=== PATIENT | female | born 1955 | race Caucasian/White ===

== ENCOUNTER 2017-06-04 08:27 | Inpatient (IN) | payer OTHER ==
--- NOTE | 2017-06-04 08:45 | ED ---
General Adult HPI - General Chief complaint: Shortness of Breath Stated complaint: fatique,weakness Time Seen by Provider: 06/04/17 08:37 Source: patient, RN notes reviewed Mode of arrival: wheelchair Limitations: no limitations - History of Present Illness Initial comments: Patient is a pleasant [age]-year-old female presenting to the emergency Department with shortness of breath. Symptoms have been present for the past couple of weeks. Symptoms are generally with exertion. Patient occasionally will notice symptoms at nighttime. No chest discomfort. Patient states she is only able to walk 10 or 20 feet before she becomes short of breath. Patient does admit to having some palpitations however has difficulty describing this. No leg pain or leg swelling. Minimal cough. No fever. Cough is nonproductive. - Related Data Home Medications Medication Instructions Recorded Confirmed Aspirin [Adult Low Dose Aspirin EC] 81 mg PO DAILY 06/04/17 06/04/17 Cholecalciferol [Vitamin D3] 3,000 unit PO DAILY 06/04/17 06/04/17 Hydrochlorothiazide 25 mg PO DAILY 06/04/17 06/04/17 Levothyroxine Sodium [Synthroid] 137 mcg PO DAILY 06/04/17 06/04/17 Lisinopril [Zestril] 40 mg PO DAILY 06/04/17 06/04/17 Allergies Allergy/AdvReac Type Severity Reaction Status Date / Time No Known Allergies Allergy Verified 06/04/17 08:48 Review of Systems ROS Statement: Those systems with pertinent positive or pertinent negative responses have been documented in the HPI. ROS Other: All systems not noted in ROS Statement are negative. Constitutional: Denies: fever, chills Eyes: Denies: eye pain ENT: Denies: ear pain Respiratory: Reports: dyspnea Cardiovascular: Reports: palpitations. Denies: chest pain Endocrine: Reports: fatigue Gastrointestinal: Denies: abdominal pain Genitourinary: Denies: dysuria Musculoskeletal: Denies: back pain Skin: Denies: rash Neurological: Denies: headache Past Medical History Past Medical History: Hypertension, Thyroid Disorder History of Any Multi-Drug Resistant Organisms: None Reported Past Surgical History: Cholecystectomy Additional Past Surgical History / Comment(s): partial thyroidectomy Past Psychological History: No Psychological Hx Reported Smoking Status: Never smoker Past Alcohol Use History: Rare Past Drug Use History: None Reported General Exam Limitations: no limitations General appearance: alert, in no apparent distress Head exam: Present: atraumatic Eye exam: Present: normal appearance, PERRL ENT exam: Present: normal oropharynx Neck exam: Present: normal inspection Respiratory exam: Present: normal lung sounds bilaterally Cardiovascular Exam: Present: tachycardia Expanded Peripheral pulses: 2+: Radial (R), Radial (L), Posterior Tibialis (R), Posterior Tibialis (L) GI/Abdominal exam: Present: soft. Absent: tenderness Extremities exam: Present: normal inspection. Absent: pedal edema, calf tenderness Back exam: Present: normal inspection Neurological exam: Present: alert Psychiatric exam: Present: normal affect, normal mood Skin exam: Present: normal color Course Vital Signs 06/04/17 06/04/17 08:28 09:30 Temperature 96.9 F L Pulse Rate 110 H 90 Respiratory 20 20 Rate Blood Pressure 129/79 115/75 O2 Sat by Pulse 95 99 Oximetry - Reevaluation(s) Reevaluation #1: 06/04/17 10:25 Case was discussed with radiologist with concern for massive pulmonary embolism. Case was then discussed with Dr. Nova who did review computed tomography scan. Discussion had whether or not to provide TPA. He does want to have stat echo done first to evaluate for cardiac strain. Patient and family were updated. Patient states she does have a sister who of pulmonary embolism. Patient states she also has a history of DVT previously however is no longer on blood thinners. 06/04/17 10:28 Dr. verdugo has been paged for admission for Dr. Reyes. EKG Findings - EKG Comments: EKG Findings:: Sinus tach 105. NM 172. QRS 80. QT 336. QTc 444. Normal axis. Q waves with inverted T waves inferior. Medical Decision Making - Lab Data Result diagrams: 06/04/17 09:00 06/04/17 09:00 Lab Results 06/04/17 06/04/17 06/04/17 Range/Units 09:00 09:00 09:00 WBC 5.9 (3.8-10.6) k/uL RBC 4.50 (3.80-5.40) m/uL Hgb 13.8 (11.4-16.0) gm/dL Hct 41.4 (34.0-46.0) % MCV 91.9 (80.0-100.0) fL MCH 30.6 (25.0-35.0) pg MCHC 33.3 (31.0-37.0) g/dL RDW 14.4 (11.5-15.5) % Plt Count 188 (150-450) k/uL Neutrophils % 67 % Lymphocytes % 22 % Monocytes % 4 % Eosinophils % 4 % Basophils % 1 % Neutrophils # 4.0 (1.3-7.7) k/uL Lymphocytes # 1.3 (1.0-4.8) k/uL Monocytes # 0.2 (0-1.0) k/uL Eosinophils # 0.2 (0-0.7) k/uL Basophils # 0.0 (0-0.2) k/uL PT (9.0-12.0) sec INR (<1.2) APTT (22.0-30.0) sec D-Dimer (<0.60) mg/L FEU Sodium 140 (137-145) mmol/L Potassium 3.6 (3.5-5.1) mmol/L Chloride 103 (98-107) mmol/L Carbon Dioxide 23 (22-30) mmol/L Anion Gap 14 mmol/L BUN 20 H (7-17) mg/dL Creatinine 1.07 H (0.52-1.04) mg/dL Est GFR (MDRD) Af Amer >60 (>60 ml/min/1.73 sqM) Est GFR (MDRD) Non-Af 52 (>60 ml/min/1.73 sqM) Glucose 149 H (74-99) mg/dL Calcium 9.3 (8.4-10.2) mg/dL Total Bilirubin 0.9 (0.2-1.3) mg/dL AST 34 (14-36) U/L ALT 54 H (9-52) U/L Alkaline Phosphatase 127 H (38-126) U/L Total Creatine Kinase 55 (30-135) U/L CK-MB (CK-2) 1.0 (0.0-2.4) ng/mL CK-MB (CK-2) Rel Index 1.8 Troponin I 0.139 H* (0.000-0.034) ng/mL NT-Pro-B Natriuret Pep pg/mL Total Protein 6.9 (6.3-8.2) g/dL Albumin 4.0 (3.5-5.0) g/dL 06/04/17 06/04/17 Range/Units 09:00 09:00 WBC (3.8-10.6) k/uL RBC (3.80-5.40) m/uL Hgb (11.4-16.0) gm/dL Hct (34.0-46.0) % MCV (80.0-100.0) fL MCH (25.0-35.0) pg MCHC (31.0-37.0) g/dL RDW (11.5-15.5) % Plt Count (150-450) k/uL Neutrophils % % Lymphocytes % % Monocytes % % Eosinophils % % Basophils % % Neutrophils # (1.3-7.7) k/uL Lymphocytes # (1.0-4.8) k/uL Monocytes # (0-1.0) k/uL Eosinophils # (0-0.7) k/uL Basophils # (0-0.2) k/uL PT 11.2 (9.0-12.0) sec INR 1.1 (<1.2) APTT 22.3 (22.0-30.0) sec D-Dimer 11.44 H (<0.60) mg/L FEU Sodium (137-145) mmol/L Potassium (3.5-5.1) mmol/L Chloride (98-107) mmol/L Carbon Dioxide (22-30) mmol/L Anion Gap mmol/L BUN (7-17) mg/dL Creatinine (0.52-1.04) mg/dL Est GFR (MDRD) Af Amer (>60 ml/min/1.73 sqM) Est GFR (MDRD) Non-Af (>60 ml/min/1.73 sqM) Glucose (74-99) mg/dL Calcium (8.4-10.2) mg/dL Total Bilirubin (0.2-1.3) mg/dL AST (14-36) U/L ALT (9-52) U/L Alkaline Phosphatase (38-126) U/L Total Creatine Kinase (30-135) U/L CK-MB (CK-2) (0.0-2.4) ng/mL CK-MB (CK-2) Rel Index Troponin I (0.000-0.034) ng/mL NT-Pro-B Natriuret Pep 5110 pg/mL Total Protein (6.3-8.2) g/dL Albumin (3.5-5.0) g/dL - Radiology Data Radiology results: image reviewed (Two-view chest x-ray shows no acute process. Computed tomography scan of the chest shows acute massive pulmonary embolism with central and peripheral involvement.) Critical Care Time Critical Care Time: Yes Total Critical Care Time: 40 Disposition Clinical Impression: Acute massive pulmonary embolism Disposition: ADMITTED IP TO THIS HOSP Condition: Critical Referrals: Rafal Reyes MD [Primary Care Provider] - 1-2 days Decision Time: 10:27
[2017-06-04 09:17] LABS: Basophils % (A) 1 %; CH 31.6; CHCM 34.5; Eosinophils # (A) 0.2 k/uL (0-0.7); Eosinophils % (A) 4 %; HCT 41.4 % (34.0-46.0); HDW 2.59; HGB 13.8 gm/dL (11.4-16.0); Luc # (Auto) 0.13; Luc % (Auto) 2; Lymphocytes # (A) 1.3 k/uL (1.0-4.8); Lymphocytes % (A) 22 %; MCH 30.6 pg (25.0-35.0); MCHC 33.3 g/dL (31.0-37.0); MCV 91.9 fL (80.0-100.0); Mean Platelet Volume 8.9; Monocytes # (A) 0.2 k/uL (0-1.0); Monocytes % (A) 4 %; Neutrophils % (A) 67 %; RDW 14.4 % (11.5-15.5); WBC 5.9 k/uL (3.8-10.6); WBC (Perox) 5.79
[2017-06-04 09:28] LABS: ALT 54 U/L (9-52); AST 34 U/L (14-36); Alkaline Phosphatase 127 U/L (38-126); Anion Gap 14 mmol/L; Blood Urea Nitrogen 20 mg/dL (7-17); Calcium 9.3 mg/dL (8.4-10.2); Carbon Dioxide 23 mmol/L (22-30); Chloride 103 mmol/L (98-107); Glucose 149 mg/dL (74-99); Non-African American GFR(MDRD) 52 (>60 ml/min/1.73 sqM); Potassium 3.6 mmol/L (3.5-5.1); Sodium 140 mmol/L (137-145); Total Bilirubin 0.9 mg/dL (0.2-1.3); Total Protein 6.9 g/dL (6.3-8.2)
--- NOTE | 2017-06-04 09:31 | XR ---
EXAMINATION TYPE: XR chest 2V DATE OF EXAM: 06/04/2017 COMPARISON: NONE HISTORY: Difficulty breathing, chest tightness TECHNIQUE: Frontal and lateral views of the chest are obtained. FINDINGS: There is no focal air space opacity, pleural effusion, or pneumothorax seen. The cardiac silhouette size is within normal limits. There are overlying cardiac leads. There is a gentle spinal curvature. Patient is slightly rotated. The osseous structures are intact. IMPRESSION: No acute cardiopulmonary process.
[2017-06-04 09:40] LABS: INR 1.1 (<1.2); Partial Thromboplastin Time 22.3 sec (22.0-30.0); Prothrombin Time 11.2 sec (9.0-12.0)
[2017-06-04] MEDS ORDERED: RX INFO: IV CONTRAST WAS GIVEN 1 EACH MISC MISCELLANE PRN (09:51)
[2017-06-04 09:55] LABS: Troponin I 0.139 ng/mL (0.000-0.034)
[2017-06-04] MEDS ORDERED: HEPARIN SODIUM,PORCINE 5,000 UNIT/ML 1 ML VIAL IV PRN ×2 (09:58→10:24)
[2017-06-04] MEDS ORDERED: HEPARIN SODIUM,PORCINE 5,000 UNIT/ML 1 ML VIAL IV ONE ×2 (09:58→10:24)
[2017-06-04] MEDS ORDERED: HEPARIN SODIUM,PORCINE/D5W PMX 25,000 UNIT in DEXTROSE/WATER 1 500ML.BAG IV SCH ×2 (10:00→10:24)
--- NOTE | 2017-06-04 10:27 | CT ---
EXAMINATION TYPE: CT angio chest DATE OF EXAM: 06/04/2017 COMPARISON: NONE HISTORY: fatigue, weakness, SOB CT DLP: 598 mGycm. Automated Exposure Control for Dose Reduction was Utilized. CONTRAST: CTA scan of the thorax is performed with IV Contrast, patient injected with 100 mL of Omnipaque 350, pulmonary embolism protocol. MIP Images are created on CT scanner and reviewed. FINDINGS: There is extensive clot burden within the pulmonary artery involving the pulmonary trunk, right main pulmonary artery, left main pulmonary artery as well as segmental and subsegmental branches to all lo bes. Some of the emboli are nonocclusive with the most flow present to the upper lobes and right lowe r lobe. There is evidence of right heart strain with enlargement of the main pulmonary artery measuri ng up to 3.2 cm, leftward bowing of the interventricular septum, and reflux of contrast into the infe rior vena cava and proximal hepatic veins. The heart is not enlarged although there is engorgement of the right atrium and right ventricle.. LUNGS: No pleural effusion or pneumothorax. Subtle wedge-shaped opacities are seen within the left up per lobe peripherally, likely related to early pulmonary infarcts. Other areas of scattered subsegmen anjali atelectasis are noted. The tracheobronchial tree is patent. MEDIASTINUM: There is satisfactory enhancement of the pulmonary artery and its branches, there is no CT evidence for pulmonary embolism. There are no greater than 1 cm hilar or mediastinal lymph nodes. No cardiomegaly or pericardial effusion is seen. OTHER: 2.3 cm left upper pole renal cyst is incidentally noted as partial visualization of a known be nign adrenal gland adenoma representing either an adenoma or myelolipoma. Right thyroid lobe is eithe r surgically absent or atrophied. IMPRESSION: Acute massive pulmonary embolus involving the pulmonary trunk, right and left main pulmon karime arteries, as well as segmental and subsegmental emboli to all pulmonary lobes. There is associate d right heart strain and probable early left upper lobe pulmonary infarcts. Findings were discussed in person with Dr. Srini Ding at 10:15 on 06/04/[address] Medeiros.
[2017-06-04] MEDS ORDERED: NALOXONE 0.4 MG/ML 1 ML VIAL IV PRN (10:28)
[2017-06-04] MEDS ORDERED: SODIUM CHLORIDE 0.9% 1,000 ML IV SCH (10:30)
--- NOTE | 2017-06-04 11:56 | ECHOF ---
Referral Reason:pe MEASUREMENTS -------- HEIGHT: 167.6 cm WEIGHT: 93.0 kg BP: 134/90 RVIDd: 2.3 cm (< 3.3) IVSd: 1.2 cm (0.6 - 1.1) LVIDd: 3.0 cm (3.9 - 5.3) LVPWd: 1.2 cm (0.6 - 1.1) IVSs: 1.7 cm LVIDs: 2.1 cm LVPWs: 1.6 cm LAESV Index (A-L): 10.27 ml/m Ao Diam: 3.3 cm (2.0 - 3.7) AV Cusp: 1.5 cm (1.5 - 2.6) LA Diam: 2.9 cm (2.7 - 3.8) MV E Carlin: 0.39 m/s MV DecT: 245 ms MV A Carlin: 0.67 m/s MV E/A Ratio: 0.58 RAP: 5.00 mmHg RVSP: 65.65 mmHg FINDINGS -------- Sinus rhythm. This was a technically adequate study. There is mild concentric left ventricular hypertrophy. Overall left ventricular systolic function is normal with, an EF between 65 - 70 %. The right ventricle is severely enlarged. The right ventricular systolic function is moderately impaired. The right ventricular septal wall is flattened in diastole and systole which is consistent with right ventricular volume and pressure overload. Normal LA size by volume 22+/-6 ml/m2. RA appears enlarged. Aortic valve is trileaflet and is mildly thickened. There is no evidence of aortic regurgitation. There is no evidence of aortic stenosis. The mitral valve leaflets are mildly thickened. There is trace to mild mitral regurgitation. Mild tricuspid regurgitation present. There is moderate to severe pulmonary hypertension. The right ventricular systolic pressure, as measured by Doppler, is 65.65mmHg. The pulmonic valve was not well visualized. The aortic root size is normal. The inferior vena cava is mildly dilated. The pericardium is normal. There is no pericardial effusion. CONCLUSIONS -------- 1. Sinus rhythm. 2. The mitral valve leaflets are mildly thickened. 3. There is trace to mild mitral regurgitation. 4. Mild tricuspid regurgitation present. 5. There is moderate to severe pulmonary hypertension. 6. The right ventricular systolic pressure, as measured by Doppler, is 65.65mmHg. 7. The pulmonic valve was not well visualized. 8. The aortic root size is normal. 9. The inferior vena cava is mildly dilated. 10. There is no pericardial effusion. 11. This was a technically adequate study. 12. There is mild concentric left ventricular hypertrophy. 13. Overall left ventricular systolic function is normal with, an EF between 65 - 70 %. 14. The right ventricle is severely enlarged. 15. The right ventricular systolic function is moderately impaired. 16. Normal LA size by volume 22+/-6 ml/m2. 17. RA appears enlarged. 18. Aortic valve is trileaflet and is mildly thickened. [employer]ITCHEN [employer]: Joaquín Duvall RDCS
[2017-06-04 12:42] LABS: Glucose,Whole Blood 136 mg/dL (75-99)
--- NOTE | 2017-06-04 13:27 | P.CNPUL ---
History of Present Illness Consult date: 06/04/17 Reason for consult: dyspnea History of present illness: A pleasant 62-year-old female patient presented to the ED because of an acute shortness of breath. The patient started having some increased shortness of breath couple of weeks back and her symptoms progressively got worse. She was having exertional dyspnea. No chest pain. No pleurisy. It got to the point where the patient was unable to walk 10-20 feet without getting short of breath. For that reason she presented to the hospital. No leg pain. No swelling. CT angios the chest was done in the emergency department and it showed significant pulmonary embolism involving the pulmonary artery trunk, right and left main pulmonary arteries as well as segmental and subsegmental emboli to all of the pulmonary lobes. This was a seated with some right heart strain and probably early left upper lobe pulmonary infarction. Despite all this, the patient was hemodynamically stable and she did not reveal any hypotension. She was slightly tachycardic at time of admission, sinus tachycardia and her heart rate currently is down to 97. Her pulse ox is 98% on 2 L of oxygen by nasal cannula. Most recent blood pressure 115/88. Echocardiogram was ordered and the burst department and it showed severe pulmonary hypertension with a PA pressure of 65. Right ventricular was significantly dilated and enlarged. Troponin was positive at 0.139. ProBNP level was 5110. D-dimer is 11.4. Currently the patient is in intensive care unit on high dose/intensity heparin. Note that this was an unprovoked event. The patient had no recent surgery. No recent trips whether pain or throat trips. No recent orthopedic interventions. No recent falls. The patient has had a previous DVT back in 2006 during each of 2 [place]. 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 Furthermore, the patient was given anticoagulation with warfarin for a total of 6 months and subsequently she was asked to discontinue the anticoagulation. Over the past 7 years, there has been no further or clotting. The patient has a sister with diabetes of 41 from a massive pulmonary embolism. The patient also has also had a brother and a niece with complicated pulmonary embolism. Review of Systems Constitutional: Denies chills, Denies fever Eyes: denies blurred vision, denies bulging eye, denies decreased vision Ears: deny: decreased hearing, ear discharge, earache Ears, nose, mouth and throat: Denies headache, Denies sore throat Cardiovascular: Reports dyspnea on exertion, Reports shortness of breath Respiratory: Reports dyspnea Gastrointestinal: Denies abdominal pain, Denies diarrhea, Denies nausea, Denies vomiting Genitourinary: Denies dysuria, Denies hematuria Integumentary: Denies pruritus, Denies rash Neurological: Denies numbness, Denies weakness Psychiatric: Denies anxiety, Denies depression Endocrine: Denies fatigue, Denies weight change Past Medical History Past Medical History: Blood Disorder, Deep Vein Thrombosis (DVT), Hypertension, Thyroid Disorder Additional Past Medical History / Comment(s): 04/2011 DVT L leg, Factor V Leyden , MTHFR gene mutation/NIRAJ-1, hypertension, hypothyroidism, History of Any Multi-Drug Resistant Organisms: None Reported Past Surgical History: Cholecystectomy Additional Past Surgical History / Comment(s): partial thyroidectomy, colonoscopies/benign polypectomies. Past Anesthesia/Blood Transfusion Reactions: No Reported Reaction Smoking Status: Never smoker - Past Family History Father Family Medical History: Renal Disease Additional Family Medical History / Comment(s): Sister at age of 41 from massive pulmonary embolism, brother and niece have PE/DVT Mother Family Medical History: Cancer Additional Family Medical History / Comment(s): Mother of brain cancer/ mets at the age of 76yrs Sister(s) Family Medical History: Deep Vein Thrombosis (DVT), Pulmonary Embolus Additional Family Medical History / Comment(s): Sister had a dvt-PE and then clot went to heart and she . Medications and Allergies Home Medications Medication Instructions Recorded Confirmed Type Aspirin [Adult Low Dose Aspirin EC] 81 mg PO DAILY 06/04/17 06/04/17 History Cholecalciferol [Vitamin D3] 3,000 unit PO DAILY 06/04/17 06/04/17 History Hydrochlorothiazide 25 mg PO DAILY 06/04/17 06/04/17 History Levothyroxine Sodium [Synthroid] 137 mcg PO DAILY 06/04/17 06/04/17 History Lisinopril [Zestril] 40 mg PO DAILY 06/04/17 06/04/17 History Allergies Allergy/AdvReac Type Severity Reaction Status Date / Time No Known Allergies Allergy Verified 06/04/17 08:48 Physical Exam Vitals: Vital Signs Temp Pulse Resp BP Pulse Ox 06/04/17 12:40 98.0 F 97 22 115/88 98 06/04/17 12:38 99 06/04/17 12:00 98.4 F 98 20 110/57 97 06/04/17 11:00 97 20 107/74 98 06/04/17 10:40 101 H 20 112/79 99 06/04/17 09:30 90 20 115/75 99 06/04/17 08:28 96.9 F L 110 H 20 129/79 95 Intake and Output 06/03/17 06/04/17 06/04/17 22:59 06:59 14:59 Other: Weight 92.986 kg Patient Weight 06/05/17 06:59 Weight 92.986 kg The patient appeared well nourished and normally developed. Vital signs as documented. Head exam is unremarkable. No scleral icterus or corneal arcus noted. Neck is without jugular venous distension, thyromegaly, or carotid bruits. Carotid upstrokes are brisk bilaterally. Lungs are clear to auscultation and percussion. Cardiac exam reveals the PMI to be normally sized and situated. Rhythm is regular. First and second heart sounds normal. No murmurs, rubs or gallops. Abdominal exam reveals normal bowel sounds, no masses , no organomegaly and no aortic enlargement. Extremities are nonedematous and both femoral and pedal pulses are normal. Results - Laboratory Findings CBC and BMP: 06/04/17 09:00 06/04/17 09:00 PT/INR, D-dimer PT 11.2 sec (9.0-12.0) 06/04/17 09:00 INR 1.1 (<1.2) 06/04/17 09:00 D-Dimer 11.44 mg/L FEU (<0.60) H 06/04/17 09:00 Abnormal lab findings: Abnormal Labs 06/04/17 06/04/17 06/04/17 09:00 09:00 09:00 D-Dimer 11.44 H BUN 20 H Creatinine 1.07 H Glucose 149 H POC Glucose (mg/dL) ALT 54 H Alkaline Phosphatase 127 H Troponin I 0.139 H* 06/04/17 12:40 D-Dimer BUN Creatinine Glucose POC Glucose (mg/dL) 136 H ALT Alkaline Phosphatase Troponin I - Diagnostic Findings CT scan - chest: image reviewed Assessment and Plan Plan: Assessment 1 acute massive pulmonary embolism with poor prognostic signs including severe RV dilatation, severe pulmonary pretension, positive troponins and large clot burden on the CT angios the chest. Patient currently 90 heparin. Hemodynamically stable. On 2 L of oxygen nasal cannula. She is in mild sinus tachycardia 2 left lower extremity DVT, history of 3 hypothyroidism 4 hypertension 5 troponin leak secondary to above Plan Patient has massive pulmonary embolism. The patient has no significant hypotension yet there is significant right ventricular dilatation dysfunction. The patient is currently on IV heparin. Review the CT angios the chest. Discussed the case with cardiology locally in cardiology at the [facility]. The patient would benefit from catheter directed thrombolysis to achieve significant reduction the PA pressures and RV dilatation. For that reason, the patient will be transferred to the [facility] [place] and further treated by Ronen Hensley. She would also likely need lifelong anticoagulation with a Noac. Doppler of the lower extremities and also done. We'll continue to follow.
--- NOTE | 2017-06-04 14:02 | P.CRDCN ---
History of Present Illness Consult date: 06/04/17 Requesting physician: Omega Valdivia Consult reason: shortness of breath Chief complaint: Shortness of breath History of present illness: This is a pleasant 62-year-old female with history of hypertension, prior DVT in 2006 and was told at that time to have factor V Leiden and abnormal MTHFR gene she was taking Coumadin for approximately 6 months at which time it was discontinued. Patient also has family history of PE, her sister with pulmonary embolism at the age of 41, she also had a brother and a niece with complicated pulmonary embolism. She presented to the hospital with symptoms of shortness of breath, for 2-3 week duration. Symptoms were worse on exertion however the patient states even when she wasn't exerting herself she would become quite short of breath. She also states that intermittently she felt the discomfort in her chest. CTA of the chest was performed on admission here which revealed significant pulmonary embolism involving the pulmonary artery trunk, right and left main pulmonary arteries as well as segmental and subsegmental emboli to all of the pulmonary lobes. This was seated with some right heart strain and probably early left upper lobe pulmonary infarction. EKG on presentation here showed a sinus tachycardia with evidence of right atrial enlargement, S1 Q3 T3 pattern. Chest x-ray did not reveal any acute cardiopulmonary process. Echocardiogram with Doppler study revealed moderate to severe pulmonary hypertension. RVSP 65. EF 65-70%. Right ventricle severely enlarged, right ventricular systolic function moderately impaired, normal LV size, right atrial enlargement. Blood pressure on arrival here 128/ 78 with a heart rate in the 1 teens. 95% on room air. CBC normal. D-dimer 11.4, potassium 3.6, BUN 20, creatinine 1.0, ALT and alk phos mildly elevated.Trop 0.13, BNP 5110. Patient was initiated on IV heparin in the emergency room. Presentation is that of submassive pulmonary embolism. Arrangements are being made for transfer to [facility] [place] where the patient may benefit from Eco system, patient will also likely require lifelong anticoagulation. Venous duplex study of the lower extremities has been requested and is yet pending. Past Medical History Past Medical History: Blood Disorder, Deep Vein Thrombosis (DVT), Hypertension, Thyroid Disorder Additional Past Medical History / Comment(s): 04/2011 DVT L leg, Factor V Leyden , MTHFR gene mutation/NIRAJ-1, hypertension, hypothyroidism, History of Any Multi-Drug Resistant Organisms: None Reported Past Surgical History: Cholecystectomy Additional Past Surgical History / Comment(s): partial thyroidectomy, colonoscopies/benign polypectomies. Past Anesthesia/Blood Transfusion Reactions: No Reported Reaction Smoking Status: Never smoker - Past Family History Father Family Medical History: Renal Disease Additional Family Medical History / Comment(s): Sister at age of 41 from massive pulmonary embolism, brother and niece have PE/DVT Mother Family Medical History: Cancer Additional Family Medical History / Comment(s): Mother of brain cancer/ mets at the age of 76yrs Sister(s) Family Medical History: Deep Vein Thrombosis (DVT), Pulmonary Embolus Additional Family Medical History / Comment(s): Sister had a dvt-PE and then clot went to heart and she . Medications and Allergies Home Medications Medication Instructions Recorded Confirmed Type Aspirin [Adult Low Dose Aspirin EC] 81 mg PO DAILY 06/04/17 06/04/17 History Cholecalciferol [Vitamin D3] 3,000 unit PO DAILY 06/04/17 06/04/17 History Hydrochlorothiazide 25 mg PO DAILY 06/04/17 06/04/17 History Levothyroxine Sodium [Synthroid] 137 mcg PO DAILY 06/04/17 06/04/17 History Lisinopril [Zestril] 40 mg PO DAILY 06/04/17 06/04/17 History Allergies Allergy/AdvReac Type Severity Reaction Status Date / Time No Known Allergies Allergy Verified 06/04/17 08:48 Physical Exam Vitals: Vital Signs Temp Pulse Resp BP Pulse Ox 06/04/17 12:40 98.0 F 97 22 115/88 98 06/04/17 12:38 99 06/04/17 12:00 98.4 F 98 20 110/57 97 06/04/17 11:00 97 20 107/74 98 06/04/17 10:40 101 H 20 112/79 99 06/04/17 09:30 90 20 115/75 99 06/04/17 08:28 96.9 F L 110 H 20 129/79 95 Intake and Output 06/03/17 06/04/17 06/04/17 22:59 06:59 14:59 Intake Total 20 Balance 20 Intake: Intake, IV Titration 20 Amount Sodium Chloride 0.9% 1, 20 000 ml @ 20 mls/hr IV . Q24H [facility] Rx#:[id number] Other: Weight 92.986 kg Patient Weight 06/05/17 06:59 Weight 92.986 kg PHYSICAL EXAMINATION: HEENT: Head is atraumatic, normocephalic. Pupils equal, round. Neck is supple. There is elevated jugular venous pressure. HEART EXAMINATION: Heart S1, S2 normal. No murmur or gallop heard. CHEST EXAMINATION: Lungs are clear to auscultation and precussion. No chest wall tenderness is noted on palpation or with deep breathing. ABDOMEN: Soft, nontender. Bowel sounds are heard. No organomegaly noted. EXTREMITIES: 2+ peripheral pulses with no evidence of peripheral edema and no calf tenderness noted. NEUROLOGIC patient is awake, alert and oriented -3. . Results 06/04/17 09:00 06/04/17 09:00 Cardiac Enzymes 06/04/17 06/04/17 Range/Units 09:00 09:00 AST 34 (14-36) U/L CK-MB (CK-2) 1.0 (0.0-2.4) ng/mL Troponin I 0.139 H* (0.000-0.034) ng/mL Coagulation 06/04/17 Range/Units 09:00 PT 11.2 (9.0-12.0) sec APTT 22.3 (22.0-30.0) sec CBC 06/04/17 Range/Units 09:00 WBC 5.9 (3.8-10.6) k/uL RBC 4.50 (3.80-5.40) m/uL Hgb 13.8 (11.4-16.0) gm/dL Hct 41.4 (34.0-46.0) % Plt Count 188 (150-450) k/uL Comprehensive Metabolic Panel 06/04/17 Range/Units 09:00 Sodium 140 (137-145) mmol/L Potassium 3.6 (3.5-5.1) mmol/L Chloride 103 (98-107) mmol/L Carbon Dioxide 23 (22-30) mmol/L BUN 20 H (7-17) mg/dL Creatinine 1.07 H (0.52-1.04) mg/dL Glucose 149 H (74-99) mg/dL Calcium 9.3 (8.4-10.2) mg/dL AST 34 (14-36) U/L ALT 54 H (9-52) U/L Alkaline Phosphatase 127 H (38-126) U/L Total Protein 6.9 (6.3-8.2) g/dL Albumin 4.0 (3.5-5.0) g/dL Current Medications Generic Name Dose Route Start Last Admin Trade Name Freq PRN Reason Stop Dose Admin Heparin Sodium (Porcine) 0 unit 06/04/17 10:24 Heparin IV PER PROTOCOL PRN Low PTT Protocol Heparin Sodium/Dextrose 25,000 500 mls @ 33.47 mls/hr 06/04/17 10:24 10:35 unit/ IV Solution IV 18.01 units/kg/hr .[id number] DIXIE 33.5 mls/hr Protocol Administration 18 UNITS/KG/HR Sodium Chloride 1,000 mls @ 20 mls/hr 06/04/17 10:30 06/04/17 10:13 Saline 0.9% IV 20 mls/hr .Q24H DIXIE Administration Miscellaneous Information 1 each 06/04/17 09:51 06/04/17 10:16 Rx Info: Iv Contrast Was Given MISCELLANE 06/06/17 09:51 1 each DAILY PRN Administration Per Protocol Naloxone HCl 0.2 mg 06/04/17 10:28 Narcan IV Q2M PRN Opioid Reversal Pantoprazole Sodium 40 mg 06/05/17 07:30 Protonix PO [id number] DIXIE Intake and Output 06/03/17 06/04/17 06/04/17 22:59 06:59 14:59 Intake Total 20 Balance 20 Intake: Intake, IV Titration 20 Amount Sodium Chloride 0.9% 1, 20 000 ml @ 20 mls/hr IV . Q24H [facility] Rx#:[id number] Other: Weight 92.986 kg Patient Weight 06/05/17 06:59 Weight 92.986 kg 06/04/17 09:00 06/04/17 09:00 EKG Interpretations (text) EKG shows a sinus tachycardia with evidence of right atrial enlargement, S1 Q3 T3 pattern Assessment and Plan Plan: Assessment and plan #1 acute submassive pulmonary embolism with noted elevation of BNP, troponin, severe be dilated dictation, severe pulmonary hypertension, patient is currently not hypotensive, tachycardic with a heart rate in the 1 teens. #2 history of DVT #3 hypothyroidism #4 hypertension Plan We'll continue IV heparin. Arrangements are being made for the patient to be transferred to [facility] to be evaluated and further treated by Dr. Manning. [facility] system. Patient will also require lifelong anticoagulation. Further recommendations to follow. DNP note has been reviewed, I agree with a documented findings and plan of care. Patient was seen and examined.
--- NOTE | 2017-06-04 16:37 | P.HPIM ---
History of Present Illness H&P Date: 06/04/17 Chief Complaint: Short of breath History of present complaint: This is a very pleasant 62-year-old patient of . For 2 weeks has been feeling very weak and tired and rundown. Short of breath with minimal exertion. Finally decided to come to the ER. Denies any chest pain. No fever. No cough. Patient chronic stable medical conditions include hypertension, hypothyroid, factor V Leyden positive, M.D. HFO gene mutation positive. Patient previously had a DVT in the left leg in 2010. Significant past medical history: DVT in the left leg 2010, hypothyroid, hypertension, factor V Leyden mutation, M.D. HFO gene mutation, GEN.: Tired EYES: None HEENT: None NECK: None RESPIRATORY: Short of breath CARDIOVASCULAR: None GASTROINTESTINAL: None GENITOURINARY: None MUSCULOSKELETAL: None LYMPHATICS: None HEMATOLOGICAL: None PSYCHIATRY: None NEUROLOGICAL: None Past surgical history: Cholecystectomy, partial thyroidectomy, colonoscopy with polypectomy Home medications,: Reviewed in the computer ALLERGIES: None Social history: Discussed smoke, alcohol rarely, Family history: sister age of 41 from massive PE brother and niece all have PE/DVT VITAL SIGNS: 96.9, 110, 20, 129/79, 95% room air GENERAL: Well-built BMI 33.1, laying in bed, comfortable. EYES: Pupils equal. Conjunctiva normal. HEENT: External appearance of nose and ears normal, oral cavity grossly normal. NECK: JVD not raised; masses not palpable. HEART: First and second heart sounds are normal; no edema. LUNGS: Respiratory rate increased, decreased breath sounds. ABDOMEN: Soft, nontender, liver spleen not palpable, no masses palpable. LYMPHATICS: No lymph nodes palpable in the axilla and neck. PSYCH: [Alert and oriented x3; mood and affect somewhat anxious l. NEUROLOGICAL: Cranial nerves grossly intact; no facial asymmetry, power and sensation grossly intact. Labs: White count 5.9, hemoglobin 13.8, platelets 188, d-dimer 11.44, potassium 3.6, BNP 20, creatinine 1.07 Chest CTA-acute massive pulmonary embolism involving the body trunk right and left main pulmonary arteries as well as a segmental and subsegmental emboli to all pulmonary lobes, probably left upper lobe pulmonary infarct 2-D echo-moderate to severe pulmonary hypertension, EF 65-70%, right ventricle severely enlarged Assessment: -Acute severe massive bilateral pulmonary embolism cause causing right ventricle strain associated with pulmonary infarct -Acute secondary probably hypertension secondary to massive PE factor V Leyden mutation -MTH FFR gene mutation -Essential hypertension -Hypothyroid -Obesity BMI 33.1 Plan: Patient started on IV heparin. Admitted to the ICU. Consultation was made to pulmonary and oncology. Dr. Cuellar spoke to me. He spoke to the physician at [facility] for possible intravascular lysis and patient will be transferred there in bed is available. Care was discussed with the patient and at bedside. Questions were answered. Past Medical History Past Medical History: Blood Disorder, Deep Vein Thrombosis (DVT), Hypertension, Thyroid Disorder Additional Past Medical History / Comment(s): 04/2011 DVT L leg, Factor V Leyden , MTHFR gene mutation/NIRAJ-1, hypertension, hypothyroidism, History of Any Multi-Drug Resistant Organisms: None Reported Past Surgical History: Cholecystectomy Additional Past Surgical History / Comment(s): partial thyroidectomy, colonoscopies/benign polypectomies. Past Anesthesia/Blood Transfusion Reactions: No Reported Reaction Smoking Status: Never smoker - Past Family History Father Family Medical History: Renal Disease Additional Family Medical History / Comment(s): Sister at age of 41 from massive pulmonary embolism, brother and niece have PE/DVT Mother Family Medical History: Cancer Additional Family Medical History / Comment(s): Mother of brain cancer/ mets at the age of 76yrs Sister(s) Family Medical History: Deep Vein Thrombosis (DVT), Pulmonary Embolus Additional Family Medical History / Comment(s): Sister had a dvt-PE and then clot went to heart and she . Medications and Allergies Home Medications Medication Instructions Recorded Confirmed Type Aspirin [Adult Low Dose Aspirin EC] 81 mg PO DAILY 06/04/17 06/04/17 History Cholecalciferol [Vitamin D3] 3,000 unit PO DAILY 06/04/17 06/04/17 History Hydrochlorothiazide 25 mg PO DAILY 06/04/17 06/04/17 History Levothyroxine Sodium [Synthroid] 137 mcg PO DAILY 06/04/17 06/04/17 History Lisinopril [Zestril] 40 mg PO DAILY 06/04/17 06/04/17 History Allergies Allergy/AdvReac Type Severity Reaction Status Date / Time No Known Allergies Allergy Verified 06/04/17 08:48 Physical Exam Vitals: Vital Signs Temp Pulse Resp BP Pulse Ox 06/04/17 15:20 98 23 122/77 99 06/04/17 15:10 21 122/77 99 06/04/17 15:00 26 H 95/84 99 06/04/17 14:50 95/84 06/04/17 14:40 46 H 95/84 95 06/04/17 14:30 30 H 95/84 99 06/04/17 14:20 27 H 95/84 97 06/04/17 14:17 36 H 95/84 97 06/04/17 14:00 98.8 F 97 30 H 97/74 99 06/04/17 13:50 100 23 114/82 99 06/04/17 13:40 101 H 25 H 148/90 98 06/04/17 13:30 103 H 21 148/90 98 06/04/17 13:20 105 H 28 H 146/68 99 06/04/17 13:10 105 H 28 H 158/89 97 06/04/17 13:00 111 H 32 H 158/89 99 06/04/17 12:50 85 25 H 115/88 98 06/04/17 12:40 98.0 F 97 22 115/88 98 06/04/17 12:38 99 06/04/17 12:00 98.4 F 98 20 110/57 97 06/04/17 11:00 97 20 107/74 98 06/04/17 10:40 101 H 20 112/79 99 06/04/17 09:30 90 20 115/75 99 06/04/17 08:28 96.9 F L 110 H 20 129/79 95 Intake and Output 06/04/17 06/04/17 06/04/17 06:59 14:59 22:59 Intake Total 40 20 Output Total 300 Balance 40 -280 Intake: Intake, IV Titration 40 20 Amount Sodium Chloride 0.9% 1, 40 20 000 ml @ 20 mls/hr IV . Q24H [facility] Rx#:[id number] Output: Urine 300 Other: # Voids 1 Weight 92.986 kg Patient Weight 06/05/17 06:59 Weight 92.986 kg Results CBC & Chem 7: 06/04/17 09:00 06/04/17 09:00 Labs: Abnormal Lab Results - Last 24 Hours (Table) 06/04/17 06/04/17 06/04/17 Range/Units 09:00 09:00 09:00 D-Dimer 11.44 H (<0.60) mg/L FEU BUN 20 H (7-17) mg/dL Creatinine 1.07 H (0.52-1.04) mg/dL Glucose 149 H (74-99) mg/dL POC Glucose (mg/dL) (75-99) mg/dL ALT 54 H (9-52) U/L Alkaline Phosphatase 127 H (38-126) U/L Troponin I 0.139 H* (0.000-0.034) ng/mL 06/04/17 Range/Units 12:40 D-Dimer (<0.60) mg/L FEU BUN (7-17) mg/dL Creatinine (0.52-1.04) mg/dL Glucose (74-99) mg/dL POC Glucose (mg/dL) 136 H (75-99) mg/dL ALT (9-52) U/L Alkaline Phosphatase (38-126) U/L Troponin I (0.000-0.034) ng/mL Thrombosis Risk Factor Assmnt - Choose All That Apply Any of the Below Risk Factors Present?: Yes Each Factor Represents 1 point: Obesity (BMI >25) Other Risk Factors: Yes Each Risk Factor Represents 2 Points: Age 61-74 years Each Risk Factor Represents 3 Points: Positive Factor V Leiden, Family history of DVT/PE, History of DVT/PE Other congenital or acquired thrombophilia - If yes, enter type in comment: No Thrombosis Risk Factor Assessment Total Risk Factor Score: 12 Thrombosis Risk Factor Assessment Level: High Risk
[2017-06-04 16:49] VITALS: BP 102/75; PULSE 0; RESP 28; TEMP 98.7
[2017-06-05] MEDS ORDERED: PANTOPRAZOLE 40 MG TABLET PO SCH (07:30)
== END 2017-06-04 16:54 | disposition short-term general hospital (02) | DRG 176 ==
LOC: EC 08:27 → 6ICU 10:28
PROVIDERS: ADMIT Hospitalist; ATTEND Hospitalist
DX: I26.99 Other pulmonary embolism without acute cor pulmonale (principal); D68.51 Activated protein C resistance; I27.2 Other secondary pulmonary hypertension; E72.12 Methylenetetrahydrofolate reductase deficiency; I10 Essential (primary) hypertension; E89.0 Postprocedural hypothyroidism; I51.9 Heart disease, unspecified; R05 Cough; R00.2 Palpitations; R00.0 Tachycardia, unspecified; R53.1 Weakness; R26.2 Difficulty in walking, not elsewhere classified; R74.8 Abnormal levels of other serum enzymes; E66.9 Obesity, unspecified; Z79.899 Other long term (current) drug therapy; Z79.82 Long term (current) use of aspirin; Z80.8 Family history of malignant neoplasm of other organs or systems; Z86.718 Personal history of other venous thrombosis and embolism; Z90.49 Acquired absence of other specified parts of digestive tract; Z86.010 Personal history of colon polyps; Z82.49 Family history of ischemic heart disease and other diseases of the circulatory system; Z84.1 Family history of disorders of kidney and ureter
CPT/HCPCS: 36415; 71020; 71275; 80053; 82550; 82553; 83880; 84484; 85025; 85379; 85610; 85730; 93005; 93306; 96365; 96366; 96376; 99291